=== PATIENT | female | born 1970 | race Caucasian/White ===

== ENCOUNTER → 2018-01-20 | Outpatient (CLI) | payer OTHER ==
[~2018-01-20] MED LIST: ASPI-1064 PO; CALC1CAP19 PO; GARL600T2 PO; IBU800 PO; LORA10CA3 PO; MULT-1335 PO; NO MEDS; OMEG-26 PO; OXYC1TAB54 PO
[2018-01-20 17:46] LABS: PLATELET COUNT, AUTOMATED 331 K/uL (150-450)
== END ==
LOC: LAB 16:13
PROVIDERS: ATTEND Nurse Practitioner Psychiatric/Mental Health
DX: Z00.00 Encounter for general adult medical examination without abnormal findings (principal)
CPT/HCPCS: 82040; 82247; 82310; 82374; 82435; 82565; 82947; 84075; 84132; 84155; 84295; 84443; 84450; 84460; 84520; 85025; 87045; 87177; 87338

== ENCOUNTER → 2018-01-21 | Outpatient (REF) | payer OTHER | LOC: ZZSENDIN 14:36 | PROVIDERS: ATTEND Nurse Practitioner Psychiatric/Mental Health | DX: Z00.00 Encounter for general adult medical examination without abnormal findings (principal); R19.7 Diarrhea, unspecified ==